=== PATIENT | male | born 1950 | race Caucasian/White ===

== ENCOUNTER 2016-07-22 14:07 | Emergency (ER) | payer OTHER, BC ==
[2016-07-22 14:45] VITALS: BP 159/83; PULSE 75; TEMP 98.6; BMI 25.5
--- NOTE | 2016-07-22 18:54 | PDOC ---
History of Present Illness - General Chief Complaint: Edema Stated Complaint: SWOLLEN FEET Time Seen by Provider: 07/22/16 18:39 History Source: Patient Exam Limitations: No Limitations - History of Present Illness Initial Comments: 07/22/16 18:49 65yo Male patient presents to ED c/o bilateral lower leg swelling x 1 week getting worse. Patient states, " I lost my legs, and I cant stand or walk." He reports symptoms progressively got worse over the course of 3 days. He states he drinks lots of water every day. Patient denies CP, Abd pain, Back pain, n/v/d , fever, fall, injury, or any other complaints at this time. Patient reports hx Diabetes, HTN. Denies kidney disease. Occurred: reports: other (1 week ago) Severity: Yes: severe Lower Extremity Pain Location: bilateral: leg Method of Injury: No: unknown, assault, burn, direct blow, fell, incised, motor vehicle accident, sports injury, twisted, other Modifying Factors: worse with: None, cold therapy, immobilization, pain medication, rest, other Associated Symptoms: Numbness and tingling. Lower Ext. Injury Location - Specific Injury Location Legs: bilateral: normal range of motion, soft tissue tenderness, pain, swelling Ankle: bilateral soft tissue tenderness, bilateral limited range of motion, bilateral pain, bilateral swelling Foot: bilateral foot soft tissue tenderness, bilateral foot limited range of motion, bilateral foot pain, bilateral foot swelling Extremity Pain Location - Extremity Pain Location Extremity Pain Locations: bilateral: foot, ankle, leg Past History - Travel Traveled outside of the country in the last 30 days: No Close contact w/someone who was outside of country & ill: No - Past Medical History Allergies/Adverse Reactions: Allergies Allergy/AdvReac Type Severity Reaction Status Date / Time No Known Allergies Allergy Verified 07/22/16 14:35 Cancer: Yes (prostate cancer) - Psycho/Social/Smoking Cessation Hx Suicidal Ideation: No Smoking History: Never smoked Review of Systems - Review of Systems Respiratory: No: Cough, Shortness of Breath Cardiac (ROS): No: Chest Pain Musculoskeletal: Yes: Other (Lower extremity swelling.) All Other Systems: Reviewed and Negative *Physical Exam - Vital Signs Last Vital Signs Temp Pulse Resp BP Pulse Ox 98.6 F 75 16 159/83 100 07/22/16 14:35 07/22/16 14:35 07/22/16 14:35 07/22/16 14:35 07/22/16 14:35 - Physical Exam General Appearance: Yes: Mild Distress Neck: positive: Supple Respiratory/Chest: positive: Lungs Clear, Normal Breath Sounds Cardiovascular: positive: Regular Rhythm, Regular Rate Gastrointestinal/Abdominal: positive: Normal Bowel Sounds, Soft, Distended. negative: Rebound, Tenderness Musculoskeletal: positive: Normal Inspection. 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
--- NOTE | 2016-07-22 19:35 | PDOC ---
History of Present Illness - General Chief Complaint: Edema Stated Complaint: SWOLLEN FEET Time Seen by Provider: 07/22/16 18:39 History Source: Patient, Significant Other Exam Limitations: No Limitations - History of Present Illness Initial Comments: 07/22/16 19:30 65yo Male patient presents to ED c/o bilateral lower extremity swelling which has been ongoing. Patient reports last Thursday he was climbing out of a [place]y when he banged his badillo against a rock, by the time he got home his pants were soaked with blood. Patient denies hx; DM, HTN, Thyroid problems, fever, CP, ABd pain, n/v/d, rash, or any other complaints at this time. Patient requesting to be tested for lyme disease and have his PSA level checked. Occurred: reports: last week Severity: Yes: moderate Lower Extremity Pain Location: bilateral: leg Method of Injury: Yes: other (See HPI) Modifying Factors: improves with: None Associated Symptoms: Numbness and tingling Lower Ext. Injury Location - Specific Injury Location Legs: left: abrasions, bilateral: soft tissue tenderness, swelling, other ( Moderate Erythema) Extremity Pain Location - Extremity Pain Location Extremity Pain Locations: bilateral: leg Past History - Travel Traveled outside of the country in the last 30 days: No Close contact w/someone who was outside of country & ill: No - Past Medical History Allergies/Adverse Reactions: Allergies Allergy/AdvReac Type Severity Reaction Status Date / Time No Known Allergies Allergy Verified 07/22/16 14:35 Home Medications: Ambulatory Orders Cephalexin Monohydrate [Keflex -] 500 mg PO BID #28 capsule 07/22/16 Sulfamethoxazole/Trimethoprim [Bactrim Ds -] 1 tab PO BID #28 tablet 07/22/16 Tramadol HCl 50 mg PO Q6H PRN #12 tablet MDD 4 tabs 07/22/16 Cancer: Yes (prostate cancer) - Psycho/Social/Smoking Cessation Hx Suicidal Ideation: No Smoking History: Never smoked Review of Systems - Review of Systems Constitutional: No: Chills, Fever, Night Sweats Respiratory: No: Cough, Shortness of Breath Cardiac (ROS): No: Chest Pain : No: Burning, Dysuria, Hematuria Musculoskeletal: Yes: Other (Bilateral lower extremity swelling and redness.) Integumentary: Yes: Erythema. No: Sweating Neurological: Yes: Numbness, Tingling All Other Systems: Reviewed and Negative *Physical Exam - Vital Signs Last Vital Signs Temp Pulse Resp BP Pulse Ox 98.6 F 75 16 159/83 100 07/22/16 14:35 07/22/16 14:35 07/22/16 14:35 07/22/16 14:35 07/22/16 14:35 - Physical Exam General Appearance: Yes: Nourished, Appropriately Dressed Neck: positive: Trachea midline, Supple Respiratory/Chest: positive: Lungs Clear, Normal Breath Sounds Cardiovascular: positive: Regular Rhythm, Regular Rate Gastrointestinal/Abdominal: positive: Normal Bowel Sounds, Soft Lymphatic: negative: Adenopathy Musculoskeletal: positive: Normal Inspection Extremity: positive: Normal Capillary Refill, Normal Range of Motion, Swelling, Erythema, Inflammation Integumentary: positive: Dry, Warm, Swelling, Other (Increased Redness) 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 WBC and Random GUL WNL. Will treat with IV abx and d/ c to home on oral abx with f/u PCP. *DC/Admit/Observation/Transfer Diagnosis at time of Disposition: Cellulitis of both lower extremities - Discharge Dispostion Disposition: HOME Condition at time of disposition: Good Admit: No - Prescriptions Prescriptions: Sulfamethoxazole/Trimethoprim [Bactrim Ds -] 1 tab PO BID #28 tablet Cephalexin Monohydrate [Keflex -] 500 mg PO BID #28 capsule Tramadol HCl 50 mg PO Q6H PRN #12 tablet MDD 4 tabs PRN Reason: Severe Pain - Referrals Referrals: Aly Villagran MD [Primary Care Provider] - - Patient Instructions Printed Discharge Instructions: DI for Cellulitis -- Adult Additional Instructions: TAKE MEDICATIONS PRESCRIBED. DO NOT DRIVE, DRINK ALCOHOL, OR OPERATE HEAVY MACHINERY WHILE TAKING TRAMADOL. FOLLOW UP WITH YOUR PRIMARY CARE PROVIDER FOR FURTHER EVALUATION THIS WEEK OR EARLY NEXT WEEK. RETURN IF SYMPTOMS WORSEN OR ANY CONCERNS FOR FURTHER EVALUATION. Print Language: ARABIC
[2016-07-22] MEDS ORDERED: CEFTRIAXONE 2 GM in DEXTROSE 5%-WATER - 100 ML IVPB ONE (19:37)
[2016-07-22] MEDS ORDERED: VANCOMYCIN 1,000 MG in DEXTROSE 5%-WATER - 250 ML IVPB ONE (19:37)
[2016-07-22 19:52] LABS: BASOPHIL 0.5 % (0-2.0); EOSINOPHIL 0.9 % (0-4.5); MCH 30.5 pg (25.7-33.7); MCHC 32.9 g/dl (32.0-35.9); MEAN CELL VOLUME 92.5 fl (80-96); MEAN PLT VOLUME 8.2 fl (7.5-11.1); NEUTROPHILS 66.9 % (42.8-82.8); PLATELET COUNT 237 K/MM3 (134-434); RDW 12.8 % (11.9-15.9); WHITE BLOOD COUNT 7.3 K/mm3 (4.0-10.0)
[2016-07-22 20:19] LABS: ALBUMIN 4.9 g/dl (3.4-5.0); ANION GAP 8 (8-16); BILIRUBIN,TOTAL 0.5 mg/dL (0.2-1.0); CALCIUM 9.1 mg/dL (8.5-10.1); CO2 28 mmol/L (21-32); CREATININE 0.9 mg/dL (0.7-1.3); GLUCOSE,RANDOM 102 mg/dL (74-106); SGOT/AST 20 U/L (15-37); SGPT/ALT 43 U/L (12-78); TOT PROT 8.1 g/dl (6.4-8.2)
[2016-07-22 20:27] LABS: ALK PHOS 60 U/L (45-117); THYROID STIMULATING HORMONE 1.17 uIU/ml (0.358-3.74)
[2016-07-22] MEDS ORDERED: CEFTRIAXONE 100 ML IVPB ONE (21:02)
[2016-07-22] MEDS ORDERED: OXYCODONE/APAP 5/325MG COMBO TABLET PO ONE (21:14)
[2016-07-22] MEDS ORDERED: VANCOMYCIN 1 GRAM (PRE-DOCKED) 250 ML IVPB ONE (21:22)
[2016-07-22] MEDS ORDERED: OXYCODONE/APAP 5/325MG COMBO TABLET ONE (21:22)
== END 2016-07-22 23:46 | disposition home or self-care (01) ==
LOC: JER 14:07
DX: L03.116 Cellulitis of left lower limb (principal); L03.115 Cellulitis of right lower limb
CPT/HCPCS: 36415; 80053; 84443; 85025; 87040; 93970-TC; 96365; 96368; 99281-25